=== PATIENT | female | born 1945 | race African-American/Black ===

== ENCOUNTER 2017-07-28 19:50 | Emergency (ER) | payer BC ==
--- NOTE | 2017-07-28 20:46 | PDOC ---
Rapid Medical Evaluation Chief Complaint: Blood Pressure Problem Time Seen by Provider: 07/28/17 20:41 Medical Evaluation: Allergies Allergy/AdvReac Type Severity Reaction Status Date / Time No Known Allergies Allergy Verified 07/28/17 20:42 07/28/17 20:42 c/o high blood pressure seen by Xavi Hays on 07/25 dose of valsartan was increased. patient continue to have high blood pressure at home. asymptomatic blood pressure machine reading high PMHX: HTN, SVT,. gout PE: patient alert ox 3. Plan: none. patient to the ED for further management of car.e
[2017-07-28 20:47] VITALS: BP 199/102; PULSE 69; TEMP 97.9; BMI 37.8
[2017-07-28 22:02] LABS: BASO % 0.9 % (0-2.0); EOS % 2.6 % (0-4.5); HEMATOCRIT 41.6 % (32.4-45.2); HEMOGLOBIN 13.7 GM/dL (10.7-15.3); MEAN CELL VOLUME 90.9 fl (80-96); MEAN PLT VOLUME 8.5 fl (7.5-11.1); MONO % 7.6 % (3.8-10.2); NEUT % 60.9 % (42.8-82.8); PLATELET COUNT 260 K/MM3 (134-434); RBC 4.57 M/mm3 (3.60-5.2); RDW 14.5 % (11.6-15.6); WHITE BLOOD COUNT 6.6 K/mm3 (4.0-10.0)
--- NOTE | 2017-07-28 22:09 | PDOC ---
Attending Attestation - HPI HPI: 07/28/17 22:59 The patient is a 72 year old female, with a significant past medical history of hypertension, hyperlipidemia, SVT, who presents to the emergency department complaining of lightheadedness. The patient states she is unable to describe the lightheaded sensation but reports it does not feel like a room spinning sensation and only last for a few minutes before resolving on its own. The patient reports a similar feeling of lightheadedness last September and reports it was associated with her high blood pressure. The patient denies chest pain, shortness of breath or blurry vision. She denies recent swelling or weakness. Allergies: NKA Documentation prepared by Suresh Niño, acting as medical billing and coding instructor for Georgia Keith DO. - Physicial Exam PE: 07/28/17 23:11 GENERAL: Awake, alert, and fully oriented, in no acute distress HEAD: No signs of trauma EYES: PERRLA, EOMI, sclera anicteric, conjunctiva clear ENT: Auricles normal inspection, hearing grossly normal, nares patent, oropharynx clear without exudates. Moist mucosa NECK: Normal ROM, supple, no lymphadenopathy, JVD, or masses LUNGS: Breath sounds equal, clear to auscultation bilaterally. No wheezes, and no crackles HEART: Regular rate and rhythm, normal S1 and S2, no murmurs, rubs or gallops ABDOMEN: Soft, nontender, normoactive bowel sounds. No guarding, no rebound. No masses EXTREMITIES: Normal range of motion, no edema. No clubbing or cyanosis. No cords, erythema, or tenderness NEUROLOGICAL: Cranial nerves II through XII grossly intact. Normal speech. SKIN: Warm, Dry, normal turgor, no rashes or lesions noted. <Suresh Niño - Last Filed: 07/28/17 22:59> - Resident Resident Name: Aniceto Fontanez - ED Attending Attestation I have performed the following: I have examined & evaluated the patient, The case was reviewed & discussed with the resident, I agree w/resident's findings & plan, Exceptions are as noted - Medical Decision Making 07/28/17 22:08 I, Dr. Georgia Keith DO, attest that this document has been prepared under my direction and personally reviewed by me in its entirety. I further attest, that it accurately reflects all work, treatment, procedures and medical decision -making performed by me. 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 Answered all questions. <Georgia Keith - Last Filed: 07/29/17 01:04> Discharge Disposition - Discharge Dispostion Last Admission D/C Date: 06/13/12 Admit: No <Georgia Keith - Last Filed: 07/29/17 01:04> - Diagnosis Lightheaded - Discharge Dispostion Disposition: HOME Condition at time of disposition: Stable - Referrals Referrals: Jaki Powers MD [Primary Care Provider] - Darien Robin MD [Staff Physician] - - Patient Instructions Printed Discharge Instructions: DI for High Blood Pressure Additional Instructions: Please take all meds as prescribed. Please watch your salt intake. please return to the ED with any further complaints. - Post Discharge Activity Heart Score/ECG Review - ECG Intrepretation Comment:: 07/28/17 22:38 sinus at 61, Rbbb, 1st degree av block, t wave inversions laterally, unchanged from prior <Georgia Keith - Last Filed: 07/29/17 01:04>
--- NOTE | 2017-07-28 22:19 | PDOC ---
History of Present Illness - General Chief Complaint: Blood Pressure Problem Stated Complaint: BLOOD PRESSURE PROBLEM Time Seen by Provider: 07/28/17 20:41 History Source: Patient Exam Limitations: No Limitations - History of Present Illness Initial Comments: 07/28/17 22:12 The patient is a 72F with a PMH of HTN, HLD, SVT's, and gout who presents to the ER with elevated BP. The patient states that on 07/25, she had her BP changed on 07/25 to 360 of valsartan. She also takes a b-elana for her BP. She admits to some dizzy spells but cannot describe them. She says they come for a few seconds then go away. She denies history of vertigo. Past History - Past Medical History Allergies/Adverse Reactions: Allergies Allergy/AdvReac Type Severity Reaction Status Date / Time No Known Allergies Allergy Verified 07/28/17 20:42 Home Medications: Ambulatory Orders Allopurinol [Zyloprim -] 100 mg PO DAILY 08/27/14 Aspirin [ASA -] 325 mg PO DAILY 08/27/14 Diltiazem Cd [Cardizem Cd -] 180 mg PO DAILY 08/27/14 Metoprolol Succinate [Toprol Xl] 50 mg PO DAILY 08/27/14 Quetiapine Fumarate [Seroquel -] 100 mg PO HS 08/27/14 Valsartan [Diovan] 40 mg PO DAILY 08/27/14 Magnesium Oxide 400 mg PO DAILY #30 tablet 08/28/14 Potassium Chloride [K-Dur -] 40 meq PO BID #60 tablet.er 08/28/14 Naproxen [Naprosyn -] 500 mg PO BID #30 tablet 04/10/16 Anemia: No Asthma: No Cancer: No Cardiac Disorders: Yes (SVT) CVA: No COPD: No CHF: No Dementia: No Diabetes: No GI Disorders: No Disorders: No HTN: Yes Hypercholesterolemia: Yes Liver Disease: No Seizures: No Thyroid Disease: No Other medical history: Gout - Surgical History Abdominal Surgery: No Appendectomy: No Cardiac Surgery: No Cholecystectomy: No Lung Surgery: No Neurologic Surgery: No Orthopedic Surgery: No - Suicide/Smoking/Psychosocial Hx Smoking Status: Yes Smoking History: Never smoked Have you smoked in the past 12 months: Yes Number of Cigarettes Smoked Daily: 10 Information on smoking cessation initiated: Yes 'Breaking Loose' booklet given: 07/28/17 Hx Alcohol Use: No Drug/Substance Use Hx: No Substance Use Type: None Hx Substance Use Treatment: No Review of Systems - Review of Systems Able to Perform ROS?: Yes Comments:: 07/28/17 22:25 GENERAL/CONSTITUTIONAL: No fever or chills. No weakness. HEAD, EYES, EARS, NOSE AND THROAT: No change in vision. No ear pain or discharge. No sore throat. CARDIOVASCULAR: Positive for high blood pressure reading. No chest pain, palpitations, or lightheadedness. RESPIRATORY: No cough, wheezing, shortness of breath, or hemoptysis. GASTROINTESTINAL: No nausea, vomiting, diarrhea, constipation, or abdominal pain. GENITOURINARY: No dysuria, frequency, hematuria, or change in urination. MUSCULOSKELETAL: No joint or muscle swelling or pain. No neck or back pain. SKIN: No rash or lesions. NEUROLOGIC: No headache, numbness, tingling, weakness, loss of consciousness, or change in strength/sensation. ENDOCRINE: No increased thirst. No abnormal weight change. HEMATOLOGIC/LYMPHATIC: No anemia, easy bleeding, or history of blood clots. ALLERGIC/IMMUNOLOGIC: No hives or skin allergy. Is the patient limited Tamazight proficient: No *Physical Exam - Vital Signs Last Vital Signs Temp Pulse Resp BP Pulse Ox 97.9 F 69 14 199/102 100 07/28/17 20:42 07/28/17 20:42 07/28/17 20:42 07/28/17 20:42 07/28/17 20:42 - Physical Exam Comments: 07/28/17 22:27 GENERAL: Well developed, well nourished. Awake and alert. No acute distress. HEENT: Normocephalic, atraumatic. Hearing grossly normal. Moist mucous membranes. PERRLA, EOMI. No conjunctival pallor. Sclera are non-icteric. NECK: Supple. Full ROM. No JVD. No lymphadenopathy. CARDIOVASCULAR: Regular rate and rhythm. No murmurs, rubs, or gallops. PULMONARY: No evidence of respiratory distress. Lungs clear to auscultation bilaterally. No wheezing, rales or rhonchi. ABDOMINAL: Soft. Non-tender. Non-distended. No rebound or guarding. GENITOURINARY: No CVA tenderness bilaterally. MUSCULOSKELETAL: Normal range of motion at all joints. No bony deformities or tenderness. EXTREMITIES: No cyanosis. No clubbing. No edema. No calf tenderness. SKIN: Warm and dry. Normal capillary refill. No rashes. No jaundice. NEUROLOGICAL: Alert, awake, appropriate. Cranial nerves 2-12 intact. Normal speech. Gait is normal without ataxia. PSYCHIATRIC: Cooperative. Good eye contact. Appropriate mood and affect. Heart Score/ECG Review #1 ECG reviewed & interpreted by me at: 22:29 General ECG Interpretation: Sinus Rhythm, Normal Rate, Normal Intervals, No acute ischemic changes Compared to previous ECG there are: No significant change 07/28/17 22:30 RBBB noted Rate 61 QRS 150 QTc 485 ED Treatment Course - LABORATORY CBC & Chemistry Diagram: 07/28/17 21:52 07/28/17 21:52 - ADDITIONAL ORDERS Additional order review: 07/28/17 21:52 RBC 4.57 MCV 90.9 MCHC 33.0 RDW 14.5 MPV 8.5 Neutrophils % 60.9 D Lymphocytes % 28.0 D Monocytes % 7.6 D Eosinophils % 2.6 D Basophils % 0.9 D - RADIOLOGY Radiology Studies Ordered: Category Date Time Status CHEST X-RAY PORTABLE* [RAD] Stat Radiology 07/28/17 21:46 Ordered Medical Decision Making - Medical Decision Making 07/28/17 22:30 The patient is a 72F with a PMH of HTN who presents to the ER with elevated BP readings and a dizzyness sensation. Will order labs/imaging to r/o ACS, hypertensive encephalopathy, and end organ damage. Pt denies any changes in vision, AMS, CP, SOB so I have low suspicion for HTNsive urgency/emergency. Will monitor closely. 07/29/17 00:[address] performed. Pt signed out to Dr. Keith. *DC/Admit/Observation/Transfer - Referrals Referrals: Jaki Powers MD [Primary Care Provider] - - Patient Instructions - Post Discharge Activity
[2017-07-28 22:35] LABS: ALBUMIN 3.9 g/dl (3.4-5.0); ANION GAP 7 (8-16); BLOOD UREA NITROGEN 7 mg/dL (7-18); CALCIUM 8.7 mg/dL (8.5-10.1); CHLORIDE 104 mmol/L (98-107); CO2 29 mmol/L (21-32); GLUCOSE,RANDOM 98 mg/dL (74-106); POTASSIUM 3.5 mmol/L (3.5-5.1); SODIUM 140 mmol/L (136-145)
[2017-07-28 22:40] LABS: ALK PHOS 138 U/L (45-117); BILIRUBIN,TOTAL 0.6 mg/dL (0.2-1.0); CREATININE 0.9 mg/dL (0.55-1.02); SGOT/AST 20 U/L (15-37); SGPT/ALT 22 U/L (12-78); TOT PROT 7.3 g/dl (6.4-8.2)
--- NOTE | 2017-07-29 09:49 | EKG ---
Test Reason : Blood Pressure : / mmHG Vent. Rate : 061 BPM Atrial Rate : 061 BPM P-R Int : 220 ms QRS Dur : 150 ms QT Int : 482 ms P-R-T Axes : 029 -41 -33 degrees QTc Int : 485 ms SINUS RHYTHM WITH 1ST DEGREE A-V BLOCK WITH PREMATURE SUPRAVENTRICULAR COMPLEXES LEFT AXIS DEVIATION RIGHT BUNDLE BRANCH BLOCK T WAVE ABNORMALITY, CONSIDER LATERAL ISCHEMIA ABNORMAL ECG WHEN COMPARED WITH ECG OF 28-AUG-2014 09:19, PREMATURE SUPRAVENTRICULAR COMPLEXES ARE NOW PRESENT Confirmed by RADHA CAMP MD ([id number]) on 07/29/2017 9:49:08 AM Referred By: Confirmed By:RADHA CAMP MD
== END 2017-07-29 01:30 | disposition home or self-care (01) ==
LOC: JER 19:50
DX: I10 Essential (primary) hypertension (principal); E78.00 Pure hypercholesterolemia, unspecified; E78.5 Hyperlipidemia, unspecified; Z86.79 Personal history of other diseases of the circulatory system
CPT/HCPCS: 36415; 70450-TC; 71045-TC; 80053; 82550; 84484; 85025; 93005; 93010; 99281-25